=== PATIENT | male | born 1950 | race Caucasian/White ===

== ENCOUNTER 2024-02-18 08:10 | Day surgery (SDC) | payer MEDICARE, SELFPAY ==
[2024-02-18] VITALS (12 sets, daily range): BP systolic 92–152; BP diastolic 71–130; BMI 46.1
[2024-02-18 09:03] LABS: Blood Urea Nitrogen 35 mg/dl (9-20); Calcium 10.6 mg/dl (8.4-10.2); Carbon Dioxide 25 mmol/L (22-30); Chloride 104 mmol/L (98-107); Glucose 186 mg/dl (70-99); Sodium 136 mmol/L (135-145)
[2024-02-18] MEDS: NSS 463 ML IV (09:10)
[2024-02-18] MEDS: LOW STRENGTH ASPIRIN 324 MG PO (09:11)
[2024-02-18 09:15] LABS: Glucose - Point of Care 184 mg/dl (70-99)
[2024-02-18 10:39] LABS: ACT-LR - POC 203 Seconds (116-155)
[2024-02-18 11:39] LABS: ACT-LR - POC 179 Seconds (116-155)
[2024-02-18] MEDS: NSS 1000 IV (12:22)
--- NOTE | 2024-02-18 14:11 | ITS.CL.CATH ---
Steam Room Attendant - Catheterization
Cardiac Catheterization
Procedure Report:
CARDIAC CATHETERIZATION REPORT
Date of Procedure: 02/18/2024
Referring: Radha Hussein MD
Indication: Angina with inferior ischemia on stress testing
HEMODYNAMIC DATA
AO: 126/68
LV: 134/16
There is a 9 mmHg mean gradient across aortic valve
LEFT VENTRICULOGRAPHY: Not done due to CKD (baseline creatinine 1.7)
CORONARY ANGIOGRAPHY
Dominance: Right
Left Main: Normal
LAD: Mild luminal irregularities
Circumflex: There is 60% focal stenosis in the mid circumflex distal to the origin of the large OM3 and proximal to the first of three left posterolateral branches. OM1 and OM2 are tiny. OM3 is very large.
RCA: Calcified 80% mid RCA stenosis with a long calcified 70-80% distal RCA lesion. The RCA terminates with a large RPDA
Angioplasty: At the conclusion of the diagnostic study, we proceeded with RCA intervention. Heparin was used for anticoagulation. Plavix 600 mg was administered at the procedure conclusion. A 6 [place] JR4 guide was advanced the right coronary
ostium. A BMW wire was advanced into the RPDA. It was challenging to get a 3.0 x 12 NC trek across the mid RCA lesion. Eventually, we were able to get this across the lesion; however, we were not able to get complete balloon expansion even at 18
jeaneth of pressure. At this point it was quite clear that the mid RCA lesion would need modification before stenting. We chose shockwave. A 4.0 shockwave balloon was advanced over a guide liner and we were able to get the balloon into the mid RCA
disease segment. A total of 11 treatments each consisting of 10 pulses at 4 jeaneth were completed-per protocol, the balloon was inflated to 6 jeaneth at the end of each cycle. There was complete balloon expansion noted. There was angiographic
improvement in the appearance of the mid RCA lesion following the 11 shockwave treatments. At this point we opted to treat the distal RCA lesion before committing to stent the mid RCA disease. A 3.5 x 20 trek balloon was advanced into the distal
RCA lesion the balloon was inflated to 12 jeaneth. There was a dog bone appearance in the middle of the lesion segment and the balloon was deflated and removed. A 3.5 x 20 NC trek was advanced into the lesion and could not be passed entirely through
the lesion segment. Balloon was inflated to 10 jeaneth with complete balloon expansion although this was not reaching the dog bone segment. This balloon was removed and a 2.5 x 15 NC trek was advanced to the high-grade segment of the lesion. A series
of inflations was performed including 20 jeaneth for 43 seconds and 22 jeaneth for 45 seconds. Sadly, there was still incomplete balloon expansion even at 22 jeaneth. We decided to make one final attempt to modify the plaque before terminating the
procedure-angiography at this point showed good flow and my plan was to bring the patient back in 4 weeks for orbital atherectomy of the distal RCA then stenting of the mid and distal RCA. I was not comfortable proceeding with orbital atherectomy
following these high-pressure inflations which typically resulted in microdissection's which I thought could be significantly worsened if we proceeded with immediate atherectomy. A 3.0 x 20 NC trek was advanced into the distal RCA lesion and we
were able to achieve complete balloon expansion at 16 jeaneth for 35 seconds. At this point, I felt the vessel could be stented safely. A 4.0 x 26 Mir NICOLE was advanced to cover the distal lesion and the stent was deployed at 14 jeaneth. We then deployed
a 4.0 x 26 [place] NICOLE to cover the mid RCA lesion with deployment pressure 14 jeaneth. At this point a 4.0 x 20 NC trek was advanced and both lesions were postdilated to 17 jeaneth. The final angiographic result was outstanding. There were no procedural
complications. This was a very challenging and complex procedure requiring numerous balloons and catheter exchanges.
Closure Device: None-the procedure was performed via the right radial artery. The Adolph's test was normal prior to the procedure.
Radiation (mGy): 1521
DAP (cm2.Gy): 95.2
Fluoroscopy time: 21.5 minutes
CONCLUSIONS
1: Mild aortic stenosis with mean gradient 9 mmHg
2: Left ventriculography not performed due to CKD (Cr 1.7)
3. Noncritical mid circumflex stenosis with severe calcific mid and distal RCA disease as described
4. Successful shockwave IVL to mid RCA lesion with high-pressure balloon angioplasty of the mid and distal RCA followed by 4.0 x 26 [place] NICOLE to distal RCA lesion and 4.0 x 26 [place] NICOLE to mid RCA lesion. The final angiographic result was
outstanding at both lesion sites
5. Recommend dual antiplatelet therapy for 12 months and aggressive risk factor modification efforts
Copy to: Radha Hussein MD, Benji Betancourt,
Benjamin Vargas MD, FACC, [facility]
[2024-02-18 14:55] LABS: ACT-LR - POC > 397 Seconds (116-155)
[2024-02-18 14:55] LABS: ACT-LR - POC > 397 Seconds (116-155)
--- NOTE | 2024-02-18 15:07 | CM ---
CM following for DC planning needs.
Met w/ patient, spouse at bedside to complete initial assessment. Pt. resides w/ spouse in a private, split level home. Functionally, patient is indep. at baseline w/ ADLs, mobility without the use of any assisted device. Pt. has SPC in the home,
but does not use.
Pt. has Rx plan and uses [facility] in [facility] or mail order thru [facility].
Anticipated DC plan is for home, no needs.
Will remain avail. for any needs that may arise.
[2024-02-18 16:52] LABS: Glucose - Point of Care 188 mg/dl (70-99)
[2024-02-18] MEDS: NOVOLOG FLEXPEN-MODERATE RESISTANCE 1 UNITS SC (18:33)
--- NOTE | 2024-02-18 19:32 | PTCARENOTE ---
Pt received post cardiac cath done via right radial artery. Radial band removed as ordered , no sign of bleeding or hematoma. Pt reported chest 'something' post procedure which resolved completely. Telemetry shows sinus rhythm with first degree AV
block. Pt up walking around, voiding without difficulty.
[2024-02-18 22:28] LABS: Glucose - Point of Care 142 mg/dl (70-99)
[2024-02-18] MEDS: LIPITOR 40 MG PO (22:31)
[2024-02-19 03:18] VITALS: BP 133/87
--- NOTE | 2024-02-19 03:45 | PTCARENOTE ---
patient states sleeping comfortably overnight. denies any cp/sob. HR SR with a first degree AVB 60s-80s. bp stable. R radial site, CDI, + pulses. ambulating independently in the room. reviewed plan of care with patient and verbalized understanding.
answered all questions. eager to go home.
[2024-02-19 04:07] LABS: Hematocrit 39.6 % (39.0-52.0); Hemoglobin 13.1 g/dL (13.0-18.0); Mean Corp Hgb Conc. 33.1 g/dL (33.0-37.0); Mean Corpuscular Volume 93.8 fL (80.0-94.0); Mean Platelet Volume 11.3 fL (7.4-10.4); Platelet Count 302 10^3/uL (130-400); Red Blood Cell Count 4.22 10^6/uL (4.70-6.10); Red Cell Dist. Width 13.2 % (11.5-14.5); White Blood Cell Count 11.2 10^3/uL (4.8-10.8)
[2024-02-19 04:32] LABS: Blood Urea Nitrogen 33 mg/dl (9-20); Calcium 10.3 mg/dl (8.4-10.2); Carbon Dioxide 24 mmol/L (22-30); Chloride 104 mmol/L (98-107); Estimated Creatinine Clearance 73 ml/min; Glucose 122 mg/dl (70-99); HDL Cholesterol 39 mg/dl; LDL Cholesterol, Calculated 86 mg/dl; Potassium 4.6 mmol/L (3.5-5.1); Sodium 134 mmol/L (135-145); Total Cholesterol 180 mg/dl (50-199); Triglyceride 277 mg/dl (10-149); Very Low Density Lipoprotein 55 mg/dl (0-30)
[2024-02-19 05:21] LABS: Hepatitis C Antibody Negative (Negative)
[2024-02-19 07:01] VITALS: BP 118/101
[2024-02-19 07:04] LABS: Glucose - Point of Care 170 mg/dl (70-99)
[2024-02-19] MEDS: PROTONIX 40 MG PO (08:26)
[2024-02-19] MEDS: PLAVIX 75 MG PO (08:26)
[2024-02-19] MEDS: NOVOLOG FLEXPEN-MODERATE RESISTANCE 1 UNITS SC (08:26)
[2024-02-19] MEDS: ZESTRIL 20 MG PO (08:27)
[2024-02-19] MEDS: PROCARDIA XL (EXTENDED RELEASE) 60 MG PO (08:27)
[2024-02-19] MEDS: AMARYL 1 MG PO (08:27)
[2024-02-19] MEDS: LOW STRENGTH ASPIRIN 81 MG PO (08:27)
[2024-02-19] MEDS: JANUVIA 50 MG PO (08:27)
[2024-02-19] MEDS: ORETIC 25 MG PO (08:27)
--- NOTE | 2024-02-19 08:33 | PTCARENOTE ---
Rec'd pt AAox3 w/no c/o CP or SOB; VS stable, pt SR w/occas PVC's on telemetry monitoring. Pt's R radial site w/dressing C/D/I w/small area of purple ecchymosis around dressing, but no signs or symptoms of bleeding or hematoma. Pt anxiously awaiting
D/C. Plan of care ongoing.
[2024-02-19 08:53] LABS: Glycohemoglobin (HgbA1c) 7.5 % (4.0-5.6)
--- NOTE | 2024-02-19 10:18 | PTCARENOTE ---
Pt D/C'd to home w/ providing transportation. D/C instructions & meds discussed w/pt & spouse. Spouse manages pt's medications for him. All questions answered. 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
== END 2024-02-19 09:56 | disposition home or self-care (01) ==
LOC: CATH 08:10
PROVIDERS: Nurse Practitioner Adult Health; ATTENDING PHYSICIAN Internal Medicine Cardiovascular Disease; FAMILY PHYSICIAN Internal Medicine; OTHER PHYSICIAN Internal Medicine Cardiovascular Disease
DX: I25.119 Atherosclerotic heart disease of native coronary artery with unspecified angina pectoris (principal); I25.84 Coronary atherosclerosis due to calcified coronary lesion; R06.02 Shortness of breath; R94.39 Abnormal result of other cardiovascular function study; I12.9 Hypertensive chronic kidney disease with stage 1 through stage 4 chronic kidney disease, or unspecified chronic kidney disease; E11.22 Type 2 diabetes mellitus with diabetic chronic kidney disease; N18.30 Chronic kidney disease, stage 3 unspecified; E87.5 Hyperkalemia; E83.52 Hypercalcemia; Z87.891 Personal history of nicotine dependence; M19.90 Unspecified osteoarthritis, unspecified site; I35.0 Nonrheumatic aortic (valve) stenosis; Z79.02 Long term (current) use of antithrombotics/antiplatelets; Z79.82 Long term (current) use of aspirin
CPT/HCPCS: 92972; 80048; 80061; 82962; 83036; 85027; 86803; 93005; 93458; C1725; C1769; C1874; C1894; C9600; Q9967

== ENCOUNTER 2024-04-28 09:48 | Outpatient (RCR) | payer MEDICARE, SELFPAY ==
[2024-04-26 11:36] LABS: Glucose - Point of Care 149 mg/dl (70-99)
[2024-04-26 12:20] LABS: Glucose - Point of Care 136 mg/dl (70-99)
[2024-04-28 08:32] LABS: Glucose - Point of Care 237 mg/dl (70-99)
[2024-04-28 09:15] LABS: Glucose - Point of Care 211 mg/dl (70-99)
== END 2024-04-28 23:59 | disposition home or self-care (01) ==
LOC: CRHB 09:48
PROVIDERS: ATTENDING PHYSICIAN Internal Medicine Cardiovascular Disease
DX: Z95.5 Presence of coronary angioplasty implant and graft (principal); I25.10 Atherosclerotic heart disease of native coronary artery without angina pectoris
CPT/HCPCS: 82962; G0422; G0423

== ENCOUNTER 2024-05-25 11:23 | Outpatient (RCR) | payer MEDICARE, SELFPAY ==
[2024-05-03 08:44] LABS: Glucose - Point of Care 166 mg/dl (70-99)
[2024-05-03 09:38] LABS: Glucose - Point of Care 159 mg/dl (70-99)
[2024-05-05 08:35] LABS: Glucose - Point of Care 199 mg/dl (70-99)
[2024-05-05 09:24] LABS: Glucose - Point of Care 165 mg/dl (70-99)
[2024-05-10 08:38] LABS: Glucose - Point of Care 203 mg/dl (70-99)
[2024-05-10 09:29] LABS: Glucose - Point of Care 183 mg/dl (70-99)
[2024-05-12 08:36] LABS: Glucose - Point of Care 154 mg/dl (70-99)
[2024-05-12 09:22] LABS: Glucose - Point of Care 134 mg/dl (70-99)
== END 2024-05-25 23:59 | disposition home or self-care (01) ==
LOC: CRHB 11:23
PROVIDERS: ATTENDING PHYSICIAN Internal Medicine Cardiovascular Disease; FAMILY PHYSICIAN Internal Medicine
DX: I25.10 Atherosclerotic heart disease of native coronary artery without angina pectoris (principal); Z95.5 Presence of coronary angioplasty implant and graft
CPT/HCPCS: 82962; G0422; G0423

== ENCOUNTER 2024-06-28 09:02 | Emergency (ER) | payer MEDICARE, SELFPAY ==
[2024-06-28 09:05] VITALS: BP 133/68
[2024-06-28 09:18] VITALS: BMI 47.9
[2024-06-28 09:26] VITALS: BP 126/65
[2024-06-28 09:50] LABS: % Basophils 0.6 % (0-2); % Eosinophils 2.3 % (0-6); % Immature Granulocytes 0.9 % (0-0.5); % Lymphocytes 19.5 % (20.5-51.1); % Monocytes 11.2 % (1.7-9.3); % Neutrophils 65.5 % (42.2-75.2); Absolute Basophils 0.1 10^3/uL (0-0.2); Absolute Eosinophils 0.2 10^3/uL (0-0.7); Absolute Immature Granulocytes 0.1 10^3/uL (0-0.05); Absolute Lymphocytes 1.7 10^3/uL (1.2-3.4); Absolute Neutrophils 5.6 10^3/uL (1.4-6.5); Hematocrit 37.7 % (39.0-52.0); Hemoglobin 12.8 g/dL (13.0-18.0); Mean Corpuscular Hgb 31.4 pg (27.0-31.0); Mean Corpuscular Volume 92.6 fL (80.0-94.0); Mean Platelet Volume 10.9 fL (7.4-10.4); Nucleated Red Blood Cells % 0 % (-); Platelet Count 290 10^3/uL (130-400); Red Blood Cell Count 4.07 10^6/uL (4.70-6.10); Red Cell Dist. Width 14.1 % (11.5-14.5); White Blood Cell Count 8.6 10^3/uL (4.8-10.8)
[2024-06-28 10:00] VITALS: BP 104/76
[2024-06-28 10:00] LABS: ALT (SGPT) 22 U/L (0-50); AST (SGOT) 23 U/L (17-59); Albumin 4.2 g/dl (3.5-5.0); Alkaline Phosphatase 46 U/L (38-126); Blood Urea Nitrogen 49 mg/dl (9-20); Calcium 10.6 mg/dl (8.4-10.2); Carbon Dioxide 25 mmol/L (22-30); Chloride 105 mmol/L (98-107); Estimated Creatinine Clearance 55 ml/min; Glucose 139 mg/dl (70-99); Potassium 5.4 mmol/L (3.5-5.1); Sodium 137 mmol/L (135-145); Total Bilirubin 0.4 mg/dl (0.2-1.3); Total Protein 6.3 g/dl (6.3-8.2); eGFR 37.02
[2024-06-28 10:28] LABS: TSH 1.18 uIU/ml (0.47-4.68)
--- NOTE | 2024-06-28 10:36 | ED.GENMED ---
History of Present Illness
General
Chief Complaint: Heart Rate Problem
Source: patient and spouse
Exam Limitations: none
Time Seen by Provider: 06/28/24 09:28
Nursing documentation reviewed up to this point in time: agreed with
History of Present Illness
History of Present Illness:
73-year-old male patient presents with past medical history of hypertension, hyperlipidemia, diabetes, CAD with recent stents who presents to the emergency department patient from cardiac rehab after being found to be in atrial fibrillation.
Patient says that he was on the elliptical and when they checked his vital signs he was found to be in A-fib. He was referred over to the emergency room. He says that he has no symptoms. He has not had any chest pain, shortness of breath,
fatigue, dizziness. He says he has been doing well with cardiac rehab. He has no history of atrial fibrillation. He is on dual antiplatelet therapy with aspirin and Plavix since his cardiac stent and reports compliance.
Review of Systems
Review of Systems
All Other Systems: ROS reviewed and negative except as documented in HPI and ROS
Respiratory: Denies trouble breathing
Cardiac: Denies chest pain, palpitations or syncope
ABD/GI: Denies abdominal pain
Musculoskeletal: Denies neck pain or back pain
Neurological: Denies dizzy or headache
Phy Exam
Physical Exam
Physical Exam:
General: Awake, alert, oriented x3; no acute distress
Head: Normocephalic, atraumatic
Eyes: Conjunctiva normal
Throat: Airway intact, handling secretions
Neck: Trachea midline
Lungs: Clear to auscultation bilaterally, no wheezing, rales, rhonchi
Heart: Regular rate and irregularly irregular rhythm, no murmurs, gallops, or rubs
Abd: Soft, non distended, nontender
Neuro: No gross deficits
Skin: no rash
Extremities: No edema in extremities, equal pulses in all extremities
Scores
[id number] Score for Afib Stroke Risk
Age in Years (65=0, 65-74=1, >/=75=2): 65-74
Sex (Female=+1): Male
Congestive Heart Failure History (Yes=+1): No
Hypertension History (Yes=+1): Yes
Stroke/TIA/Thromboembolism History (Yes=+2): No
Vascular Disease History (Yes=+1): Yes
Diabetes Mellitus (Yes=+1): Yes
Score: 4
Anticoagulation Recommendations: Recommend anticoagulation (as validated in nonvalvular fib)
Heart Failure Risk
Heart Failure Risk Score: Not Applicable
Heart Score for Chest Pain Patients
STEMI patient?: Not applicable
Withdrawal Assessment of Alcohol
Withdrawal Assessment Completed?: Not applicable
Course
Orders/Labs/Results
Orders:
Orders
06/28/24 09:14
EKG [Electrocardiogram (*1)] Urgent
Reason for Study: Atrial Fibrillation
EKG- Treatment ONCE
06/28/24 09:27
CBC/With Diff [Complete Blood Count/With Diff] Urgent
CMP [Comprehensive Metabolic Panel] Urgent
TSH Urgent
06/28/24 10:59
Sodium Zirconium Cyclosilicate [Lokelma] 10 gram PO NOW STA
06/28/24 11:22
Apixaban [Eliquis] 5 mg PO ONCE ONE
Abnormal Lab Results
06/28/24
09:27
RBC 4.07 L 10^6/uL
(4.70-6.10)
Hgb 12.8 L g/dL
(13.0-18.0)
Hct 37.7 L %
(39.0-52.0)
MCH 31.4 H pg
(27.0-31.0)
MPV 10.9 H fL
(7.4-10.4)
Abs Immat Gran (auto) 0.1 H 10^3/uL
(0-0.05)
Absolute Monos (auto) 1.0 H 10^3/uL
(0.1-0.6)
Immature Gran % 0.9 H %
(0-0.5)
Lymphocytes % 19.5 L %
(20.5-51.1)
Monocytes % 11.2 H %
(1.7-9.3)
Potassium 5.4 H mmol/L
(3.5-5.1)
BUN 49 H mg/dl
(9-20)
Creatinine 1.9 H mg/dL
(0.7-1.3)
Glucose 139 H mg/dl
(70-99)
Calcium 10.6 H mg/dl
(8.4-10.2)
06/28/24 09:27
06/28/24 09:27
Vital Signs
Initial and Last Documented VS:
Initial Vital Signs
Temp Pulse Resp BP Pulse Ox
36.8 C 67 16 133/68 96
06/28/24 09:05 06/28/24 09:05 06/28/24 09:05 06/28/24 09:05 06/28/24 09:05
Last Documented Vital Signs
Temp Pulse Resp BP Pulse Ox
36.8 C 67 16 133/68 96
06/28/24 09:05 06/28/24 09:05 06/28/24 09:05 06/28/24 09:05 06/28/24 09:05
MDM/Problems Addressed
Differential Diagnosis Includes:
Atrial fibrillation
MDM/Problems Addressed:
73-year-old male with recent history significant for cardiac stents in January presents for atrial fibrillation found incidentally at cardiac rehab. He is asymptomatic. Vital signs are normal specifically has a heart rate in the 60s and 70s at
present moment. EKG shows atrial fibrillation. Check basic screening labs. Will discuss with cardiology�stents were performed by Dr. Vargas but follows long-term with Dr. Hurley through [facility].
Screening labs reviewed�patient with marginal anemia, occipital platelets. CMP shows creatinine of 1.9 which is essentially in line with baseline�he has known CKD and follows with nephrology through [place]. His potassium was slightly elevated at
5.4�discussed with nephrology will give one-time dose of Lokelma and patient can have repeat outpatient blood work. Discussed case with cardiology here given catheterization and dual antiplatelet was initiated by Dr. Vargas; recommended stopping
nifedipine and started patient on Toprol-XL 25 mg daily, stopping aspirin and continue with Plavix and initiate treatment with Eliquis 5 mg twice daily. Patient is set to have a follow-up appointment with his health associate in 2 days�will call to
coordinate care and confirm medication changes prior to disposition.
Discussed with patient's health associate Dr. Hurley who is seeing patient at 1:15 PM on . Agreed with stopping aspirin, continuing Plavix and starting patient on Eliquis 5 mg twice daily. She actually preferred to continue nifedipine at
current dose given acceptable heart rate now; she will see him on and discussed with him any adjustments or additions such as Toprol. I spoke to the patient at length about medication adjustment and follow-up plan. He feels comfortable
with this. His is at the bedside and also indicated understanding. All questions answered.
Chronic conditions affecting care:
CAD status post stents
*Pulse Oximetry
Patient hypoxic: no
*EKG
Interpreted by ED Provider?: Yes
Comparison EKG: changes noted (A-fib)
Heart Rate: 85
Rate: normal
Rhythm: a-fib
[place]: normal axis
Interval: normal interval
QRS Pattern: normal QRS
Ischemia: no ischemia
*Critical Care Note
Total Time (30-74mins, 75-104mins- exclusive of procedures): Not Applicable
Data Reviewed
Review of Other/Old Records Reveals: Labs and Records
Source: patient and spouse
Patient Management
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
ED Attending Note
-
Portions of this chart may have been created with voice recognition software.� Occasional wrong word or��sound alike� substitutions may have occurred due to the inherent limitations of voice recognition software.
Discharge Plan
Departure
Patient Disposition: Home (Routine Discharge)
Date of Disposition: 06/28/24
Time of Disposition: 11:21
Patient with high blood pressure during this ER visit?: No
Discharge Problem:
Atrial fibrillation, Hyperkalemia, Chronic kidney disease (CKD)
Instructions: Atrial Fibrillation (DC)
Prescriptions:
New
Eliquis 5 mg tablet
5 mg PO BID Qty: 60 0RF
nifedipine 60 mg tablet extended release 24hr
60 mg PO DAILY Qty: 30 0RF
Discontinued
nifedipine 60 mg Tablet Extended Release 24hr
60 mg PO DAILY
aspirin [Children's Aspirin] 81 mg Tablet,Chewable
81 mg PO DAILY Qty: 1 0RF
No Action
atorvastatin 40 mg Tablet
40 mg PO HS
fexofenadine [Felicia Allergy] 60 mg Tablet
120 mg PO DAILY PRN (Reason: allergies)
fenofibrate micronized 134 mg Capsule
134 mg PO QPM
glimepiride 1 mg Tablet
1 mg PO DAILY
lisinopril-hydrochlorothiazide 20-25 mg Tablet
1 tab PO DAILY
Januvia 50 mg Tablet
50 mg PO DAILY
milk thistle 175 mg Capsule
175 mg PO HS
omega [id number] oil [Fish Oil] 1,200 (144-216) mg Capsule
1 cap PO BID
cholecalciferol (vitamin D3) [Vitamin D3] 25 mcg (1,000 unit) Tablet,Chewable
25 mcg PO DAILY
Centrum Silver Men [id number] mcg Tablet
1 tab PO Q48H
clopidogrel 75 mg Tablet
75 mg PO DAILY Qty: 90 5RF
pantoprazole 40 mg Tablet,Delayed Release (Dr/Ec)
40 mg PO DAILY Qty: 90 5RF
nitroglycerin [nitroglycerin] 0.4 mg tablet, sublingual
0.4 mg sublingual [id number] PRN (Reason: chest pain) Qty: 25 5RF
Referrals:
Benji Betancourt DO [Family Provider] -
Radha Hussein MD [Non-Admitting Privileges] - Keep scheduled appt
Activity Restrictions/Additional Instructions:
You were seen in the emergency room because you were found to have atrial fibrillation at cardiac rehab today. After discussion with cardiology they recommended discontinuing your daily aspirin but continuing your daily dose of Plavix; you were
started on a different blood thinner called Kate that you should start taking at 5 mg twice daily. You should follow-up as scheduled with your health associate this week ( @ 1:15pm).
Incidentally you were noted to have slightly elevated potassium and creatinine levels today in the emergency room. You should have repeat blood work done as an outpatient within the next few days�you can discuss with your health associate. You should
follow-up with your miscellaneous machine operator as an outpatient as soon as you can.
Thank you for visiting the Emergency Department at [facility].
1. Please schedule a follow up appointment as directed. Call first thing tomorrow morning to make an appointment.
2. If indicated, please take your medications as instructed and indicated on discharge paperwork.
3. If any of your symptoms do not improve, or persist, or become more severe within 6-12 hours, please return to the emergency department for further care.
4. Please return to the emergency department if you develop a headache, neck pain/stiffness, fever greater than 100.4F, chest pain, shortness of breath, persistent nausea, vomiting, slurred speech, difficulty walking, numbness/tingling, weakness,
signs of infection or any other symptoms that are worrisome to you.
Please call [phone] if you have any questions.
Interventions
Interventions:
*Risk Screen - Suicide Last Done: 06/28/24 09:34
*General Assessment Last Done: 06/28/24 09:05
*Neglect/Abuse Screening Last Done: 06/28/24 09:34
*ED COVID-19 Vaccine History Last Done: 06/28/24 09:05
ED- Cardiac Assessment Last Done: 06/28/24 09:34
ED- Pulmonary Assessment Last Done: 06/28/24 09:34
Discharge Date and Time
Print Language: ARMENIAN
[2024-06-28] MEDS: LOKELMA 10 GRAM PO (11:21)
[2024-06-28] MEDS: ELIQUIS 5 MG PO (11:25)
== END 2024-06-28 12:16 | disposition home or self-care (01) ==
LOC: EMR 09:02
PROVIDERS: EMERGENCY PHYSICIAN Emergency Medicine; FAMILY PHYSICIAN Internal Medicine
DX: I48.91 Unspecified atrial fibrillation (principal); I12.9 Hypertensive chronic kidney disease with stage 1 through stage 4 chronic kidney disease, or unspecified chronic kidney disease; N18.9 Chronic kidney disease, unspecified; E87.5 Hyperkalemia; I25.10 Atherosclerotic heart disease of native coronary artery without angina pectoris; E11.22 Type 2 diabetes mellitus with diabetic chronic kidney disease; E78.5 Hyperlipidemia, unspecified
CPT/HCPCS: 99284; 80053; 84443; 85025; 93005; G0422

== ENCOUNTER 2024-06-28 09:02 | Outpatient (RCR) | payer MEDICARE, SELFPAY | END 2024-06-28 23:59 | disposition home or self-care (01) | LOC: CRHB 09:02 | PROVIDERS: ATTENDING PHYSICIAN Internal Medicine Cardiovascular Disease; FAMILY PHYSICIAN Internal Medicine | DX: I25.10 Atherosclerotic heart disease of native coronary artery without angina pectoris (principal); Z95.5 Presence of coronary angioplasty implant and graft | CPT/HCPCS: 93005; G0422; G0423 ==

== ENCOUNTER 2024-07-28 08:40 | Outpatient (RCR) | payer MEDICARE, SELFPAY | END 2024-07-28 23:59 | disposition home or self-care (01) | LOC: CRHB 08:40 | PROVIDERS: ATTENDING PHYSICIAN Internal Medicine Cardiovascular Disease; FAMILY PHYSICIAN Internal Medicine | DX: I25.10 Atherosclerotic heart disease of native coronary artery without angina pectoris (principal); Z95.5 Presence of coronary angioplasty implant and graft | CPT/HCPCS: 93797; 93798; G0422; G0423 ==

== ENCOUNTER 2024-08-25 09:40 | Outpatient (RCR) | payer MEDICARE, SELFPAY | END 2024-08-25 23:59 | disposition home or self-care (01) | LOC: CRHB 09:40 | PROVIDERS: ATTENDING PHYSICIAN Internal Medicine Cardiovascular Disease; FAMILY PHYSICIAN Internal Medicine | DX: I25.10 Atherosclerotic heart disease of native coronary artery without angina pectoris (principal); Z95.5 Presence of coronary angioplasty implant and graft | CPT/HCPCS: G0422; G0423 ==

== ENCOUNTER 2024-08-30 08:23 | Outpatient (RCR) | payer MEDICARE, SELFPAY | END 2024-08-30 11:44 | disposition home or self-care (01) | LOC: CRHB 08:23 | PROVIDERS: ATTENDING PHYSICIAN Internal Medicine Cardiovascular Disease; FAMILY PHYSICIAN Internal Medicine | DX: I25.10 Atherosclerotic heart disease of native coronary artery without angina pectoris (principal); Z95.5 Presence of coronary angioplasty implant and graft | CPT/HCPCS: G0422; G0423 ==